=== PATIENT | male | born 1935 | race Caucasian/White ===

== ENCOUNTER → 2016-06-04 | Day surgery (SDC) | payer OTHER, MEDICARE ==
[~2016-06-04] VITALS: Ht 165.1 cm; Wt 111.1 kg
[~2016-06-04] MED LIST: LOSARTAN POTAS100 M1 PO; METFORMIN HCL500 M3 PO; SIMVASTATIN80 M1 PO; SYMBICORT 16010.2 GM INH; TRIAMTERENE-HC1 EAC3 PO; VENTOLIN HFA18 GM INH
--- NOTE | 2016-06-04 15:38 | Operative Report ---
Operative/Inv Procedure Report Surgery Date: 06/04/16 Name of Procedure: Cystoscopy, bladder biopsy and fulguration Pre-Operative Diagnosis: Assessment bladder tumor Post-Operative Diagnosis: Same Estimated Blood Loss: less than 50ml Surgeon/Manager Of Loss Prevention Operations: [place] FUENTES, Fede PALACIO MD,FEDE Sandoval Anesthesia: local monitored anesthesi Drains: 20 [place] Gallego Specimens: Bladder biopsy Complications: Known Condition: Stable Operative Indication: This patient had an episode of gross hematuria. Noncontrast CT scan showed some renal stones as well as a small renal mass. He underwent office cystoscopy which showed some findings of radiation cystitis as well as some irregular mucosa lateral to the right ureteral orifice. Is now brought to the hospital for biopsy of these areas of abnormal bladder mucosa Operative/Procedure Note Note: The patient was taken to the cystoscopy room and identified. He is placed in supine position on the cystoscopy table. Timeout was executed appropriately with the patient awake. Intravenous anesthesia was given. The patient was then placed in dorsal lithotomy position and prepped and draped in usual fashion for cystoscopy. Surgical pause was executed appropriately. The 22 [place] cystoscope sheath was placed into the bladder under direct vision using the 30 lens. Anterior urethra was normal. The prostatic urethra showed partial bladder outlet obstruction with a prostatic urethra of about 2-1/2-3 cm. Cystoscopy was performed. 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 The right and left ureteral orifices were normal in location and appearance. Just lateral to the right ureteral orifice were 2 areas of abnormal bladder mucosa which were suspicious for early bladder tumor. The remainder the bladder mucosa showed no evidence of bladder tumor. Biopsy forceps were used to biopsy these 2 areas. The Bugbee electrode was used to fulgurate the biopsy sites and any abnormal mucosa in the area. A small amount of oozing was noted from the prostatic urethra but no bleeding noted from the biopsy sites. The bladder was left full and the cystoscope removed. A 20 [place] two-way Gallego catheter was inserted and attached to a leg bag. She tolerated the procedure well and as completion was taken to recovery room in stable condition. 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
== END ==
LOC: STS 05:34
DX: C67.9 Malignant neoplasm of bladder, unspecified (principal); N30.41 Irradiation cystitis with hematuria; Z85.46 Personal history of malignant neoplasm of prostate; E11.9 Type 2 diabetes mellitus without complications; Z79.84 Long term (current) use of oral hypoglycemic drugs; I10 Essential (primary) hypertension; E78.5 Hyperlipidemia, unspecified; J44.9 Chronic obstructive pulmonary disease, unspecified; Z87.891 Personal history of nicotine dependence
CPT/HCPCS: 88305; J0690